=== PATIENT | female | born 1950 | race Caucasian/White ===

== ENCOUNTER → 2018-12-01 15:05 | Outpatient (CLI) | payer MEDICARE, OTHER, SELFPAY ==
--- NOTE | 2018-12-01 | DI.MG.S_ITS ---
BILATERAL DIGITAL SCREENING MAMMOGRAM 3D/2D WITH CAD: 12/01/2018 CLINICAL: Routine screening. Family history of breast cancer. Comparison is made to exams dated: 12/07/2016 mammogram, 12/03/2015 mammogram, and 01/31/2015 mammogram - [facility]. There are scattered fibroglandular elements in both breasts. Current study was also evaluated with a Computer Aided Detection (CAD) system. No significant masses, calcifications, or other findings are seen in either breast. There has been no significant interval change. IMPRESSION: NEGATIVE There is no mammographic evidence of malignancy. A 1 year screening mammogram is recommended. This exam was interpreted at Station ID: [id number]. NOTE: For mammograms, a report in lay terms will be sent to the patient. Approximately 15% of breast malignancies will not be visualized mammographically. In the management of a palpable breast mass, a negative mammogram must not discourage biopsy of a clinically suspicious lesion. Electronically Signed By: Anthony gil/shannan:12/01/2018 16:25:54 letter sent: Normal Exam ACR BI-RADS Category 1: Negative 3341F
== END ==
PROVIDERS: Visit Provider Family Medicine Geriatric Medicine
DX: Z12.31 Encounter for screening mammogram for malignant neoplasm of breast (principal); Z80.3 Family history of malignant neoplasm of breast
CPT/HCPCS: 77063; 77067

== ENCOUNTER → 2020-02-12 13:50 | Outpatient (CLI) | payer MEDICARE, OTHER, SELFPAY ==
[2020-02-12 15:56] LABS: Add Manual Diff / Slide Review NO; Basophils Absolute Auto 200 /uL (0-100); Basophils Percent Auto 3.2 % (0-2); Eosinophils Absolute Auto 300 /uL (0-450); Eosinophils Percent Auto 5.2 % (2-4); Hemoglobin 15.4 g/dL (12.0-16.0); Lymphocytes Absolute Auto 1400 /uL (1100-4500); Lymphocytes Percent Auto 23.4 % (25-40); Mean Corpuscular HGB Conc 35.8 % (30-36); Mean Corpuscular Hemoglobin 33.6 PG (26-34); Mean Corpuscular Volume 93.8 fL (80-100); Monocytes Absolute Auto 400 /uL (0-900); Monocytes Percent Auto 6.9 % (3-14); Neutrophils Absolute Auto 3600 /uL (1500-7000); Neutrophils Percent Auto 61.3 % (50-75); Platelet Count 240 X10^3/uL (150-400); Red Blood Cell Count 4.58 X10^6/uL (4.0-5.2); Red Cell Distribution Width 12.2 % (11.6-14.8); White Blood Cell Count 5.9 X10^3/uL (4.5-11.0)
[2020-02-12 16:03] LABS: Alanine Aminotransferase 17 IU/L (<35); Albumin 4.8 g/dL (3.5-5.0); Albumin Globulin Ratio 1.5 (1.0-2.8); Alkaline Phosphatase 81 U/L (38-126); Aspartate Aminotransferase 28 IU/L (14-36); BUN Creatinine Ratio 25.7 (6-22); Bilirubin Total 0.7 mg/dL (0.2-1.3); Blood Urea Nitrogen 19 mg/dL (7-17); Calcium 10.1 mg/dL (8.4-10.2); Carbon Dioxide 25 mmol/L (22-32); Chloride 101 mmol/L (98-107); Cholesterol 147 mg/dL (140-199); Estimated Glomerular Filt Rate > 60.0 mL/min (>60); Globulin 3.3 g/dL (1.7-4.1); Glucose 91 mg/dL (80-110); HDL Cholesterol 47 mg/dL (40-60); HEMOLYSIS < 15 (0-50); LDL Cholesterol Calculated 71 mg/dL (<100); Potassium 3.5 mmol/L (3.4-5.1); Sodium 138 mmol/L (137-145); Total Protein 8.1 g/dL (6.3-8.2); Triglycerides 143 mg/dL (35-150)
[2020-02-12 16:14] LABS: Vitamin D 25 Hydroxy (D3) 79.2 ng/mL (30.0-100.0)
[2020-02-12 16:31] LABS: TSH w/ Reflex to FT4 3.95 uIU/mL (0.47-4.68)
== END ==
PROVIDERS: PCP Physician Assistant; Referring Provider Physician Assistant; Visit Provider Physician Assistant
DX: M81.0 Age-related osteoporosis without current pathological fracture (principal); E03.9 Hypothyroidism, unspecified; E55.9 Vitamin D deficiency, unspecified; E78.89 Other lipoprotein metabolism disorders; I10 Essential (primary) hypertension
CPT/HCPCS: 36415; 80053; 80061; 82306; 84443; 85025

== ENCOUNTER → 2020-10-04 12:55 | Outpatient (CLI) | payer MEDICARE, OTHER, SELFPAY ==
[2020-10-04] MEDS: COVID-19 VACC #1, MRNA(MOD) 100 MCG/0.5 ML VIAL IM (13:01)
== END ==
PROVIDERS: PCP Physician Assistant; Visit Provider Internal Medicine
DX: Z23 Encounter for immunization (principal)
CPT/HCPCS: 0011A; 91301

== ENCOUNTER → 2020-10-31 15:05 | Outpatient (CLI) | payer MEDICARE, OTHER, SELFPAY ==
[2020-10-31] MEDS: COVID-19 VACC #2, MRNA(MOD) 100 MCG/0.5 ML VIAL IM (15:13)
== END ==
PROVIDERS: PCP Physician Assistant; Visit Provider Internal Medicine
DX: Z23 Encounter for immunization (principal)
CPT/HCPCS: 0012A; 91301

== ENCOUNTER → 2020-12-12 10:42 | Outpatient (CLI) | payer MEDICARE, OTHER, SELFPAY ==
--- NOTE | 2020-12-12 10:48 | DI.MG.S_ITS ---
BILATERAL DIGITAL SCREENING MAMMOGRAM 3D/2D WITH CAD: 12/12/2020 CLINICAL: Routine screening. Family history of breast cancer. Comparison is made to exams dated: 12/01/2018 mammogram, 12/07/2016 mammogram, and 12/03/2015 mammogram - [facility]. There are scattered fibroglandular elements in both breasts. Current study was also evaluated with a Computer Aided Detection (CAD) system. No significant masses, calcifications, or other findings are seen in either breast. There has been no significant interval change. IMPRESSION: NEGATIVE There is no mammographic evidence of malignancy. A 1 year screening mammogram is recommended. This exam was interpreted at Station ID: [id number]. NOTE: For mammograms, a report in lay terms will be sent to the patient. Approximately 15% of breast malignancies will not be visualized mammographically. In the management of a palpable breast mass, a negative mammogram must not discourage biopsy of a clinically suspicious lesion. Electronically Signed By: Rip caraballo/shannan:12/12/2020 11:16:19 letter sent: Normal Exam ACR BI-RADS Category 1: Negative 3341F
[2020-12-12 12:10] LABS: Add Manual Diff / Slide Review NO; Basophils Absolute Auto 200 /uL (0-100); Eosinophils Absolute Auto 400 /uL (0-450); Eosinophils Percent Auto 7.1 % (2-4); Hematocrit 43.2 % (36-46); Hemoglobin 14.6 g/dL (12.0-16.0); Lymphocytes Absolute Auto 1500 /uL (1100-4500); Lymphocytes Percent Auto 25.6 % (25-40); Mean Corpuscular HGB Conc 33.8 % (30-36); Mean Corpuscular Hemoglobin 32.3 PG (26-34); Mean Corpuscular Volume 95.6 fL (80-100); Monocytes Absolute Auto 500 /uL (0-900); Monocytes Percent Auto 8.1 % (3-14); Neutrophils Absolute Auto 3200 /uL (1500-7000); Neutrophils Percent Auto 56.2 % (50-75); Platelet Count 259 X10^3/uL (150-400); Red Blood Cell Count 4.52 X10^6/uL (4.0-5.2); Red Cell Distribution Width 12.3 % (11.6-14.8); White Blood Cell Count 5.8 X10^3/uL (4.5-11.0)
[2020-12-12 12:26] LABS: Alanine Aminotransferase 17 IU/L (<35); Albumin 4.5 g/dL (3.5-5.0); Albumin Globulin Ratio 1.5 (1.0-2.8); Alkaline Phosphatase 92 U/L (38-126); Aspartate Aminotransferase 27 IU/L (14-36); Bilirubin Total 0.5 mg/dL (0.2-1.3); Blood Urea Nitrogen 13 mg/dL (7-17); Calcium 9.9 mg/dL (8.4-10.2); Carbon Dioxide 26 mmol/L (22-32); Chloride 103 mmol/L (98-107); Cholesterol 185 mg/dL (140-199); Estimated Glomerular Filt Rate > 60.0 mL/min (>60); Glucose 98 mg/dL (80-110); HDL Cholesterol 74 mg/dL (40-60); HEMOLYSIS < 15 (0-50); LDL Cholesterol Calculated 87 mg/dL (<100); Sodium 139 mmol/L (137-145); Total Protein 7.5 g/dL (6.3-8.2); Triglycerides 118 mg/dL (35-150)
[2020-12-12 12:43] LABS: Vitamin D 25 Hydroxy (D3) 59.3 ng/mL (30.0-100.0)
[2020-12-12 12:57] LABS: TSH w/ Reflex to FT4 5.34 uIU/mL (0.47-4.68)
[2020-12-12 13:30] LABS: Free T4, Direct Thyroxine 1.14 ng/dL (0.78-2.19)
== END ==
PROVIDERS: PCP Physician Assistant; Referring Provider Physician Assistant; Visit Provider Physician Assistant
DX: Z12.31 Encounter for screening mammogram for malignant neoplasm of breast (principal); Z80.3 Family history of malignant neoplasm of breast
CPT/HCPCS: 36415; 77063; 77067; 80053; 80061; 82306; 84439; 84443; 85025

== ENCOUNTER → 2021-02-13 14:27 | Outpatient (CLI) | payer MEDICARE, OTHER, SELFPAY ==
[2021-02-13 16:01] LABS: TSH w/ Reflex to FT4 1.91 uIU/mL (0.47-4.68)
== END ==
PROVIDERS: PCP Physician Assistant; Referring Provider Physician Assistant; Visit Provider Physician Assistant
DX: E03.9 Hypothyroidism, unspecified (principal)
CPT/HCPCS: 36415; 84443

== ENCOUNTER → 2021-04-09 09:46 | Outpatient (CLI) | payer MEDICARE, OTHER, SELFPAY ==
[2021-04-09 10:45] LABS: COVID19 -Nasal RAPID Negative (Negative)
== END ==
PROVIDERS: PCP Physician Assistant; Visit Provider Surgery
DX: Z01.812 Encounter for preprocedural laboratory examination (principal); Z20.822 Contact with and (suspected) exposure to COVID-19
CPT/HCPCS: 87635; C9803

== ENCOUNTER → 2021-04-10 07:31 | Day surgery (SDC) | payer MEDICARE, OTHER, SELFPAY ==
--- NOTE | 2021-04-10 | PATH_ITS ---
[facility] Accession Number: [id number] . 01 Material submitted: . cecum - CECUM POLYP . 02 Diagnosis: Cecum, Polyp: Portions of tubular adenoma x 2. Superficial portion of colorectal mucosa x 1 with no significant histomorphologic abnormality. MRV 04/14/2021 1344 Local . 02 Electronically signed: . Tamera Lovell MD, Pathologist NPI- [id number] . 01 Gross description: . CECUM POLYP: Received in formalin are 3 fragment(s) of navarro, soft tissue measuring 0.4 x 0.3 x 0.2 cm to 0.3 x 0.1 x 0.1 cm submitted entirely in 1 cassette(s) /NOÉ 04/11/2021 0347 Local . 02 Pathologist provided ICD-10: K63.5, Z12.11 . 02 CPT . 413464 Performed at: 01 [facility] [address], [place], [place] [id number] MD Kee Meeks MD Phone: [phone] Performed at: [address] [facility] [address] [place], [place] [id number] MD Belkys Brink MD Phone: [phone]
[2021-04-10 08:01] VITALS: BP 147/91; PULSE 89; RESP 16; TEMP 36.8; O2SAT 97; BMI 23.3
[2021-04-10] MEDS: LACTATED RINGERS 1,000 ML 100 ML IV (08:07)
[2021-04-10] MEDS: MIDAZOLAM 5 MG/5 ML VIAL IV (08:38)
[2021-04-10] MEDS: fentaNYL 250 MCG/5 ML INJ IV (08:46)
--- NOTE | 2021-04-10 08:55 | PM.OP.ENDO ---
Operative Date/Time/Diagnoses Date of procedure: 04/10/21 Time of procedure: 08:55 Pre-op diagnosis: Family history for colon polyps and colon cancer Post-op diagnosis: same Procedure & Clinicians Study performed: colonoscopy with cold forcep polypectomy. Same procedure as scheduled: Yes Indications: family history for colon polyps and colon cancer. Surgeon: Mercy Larose Procedure Notes SCOAP/Timeout: done Procedure in detail: Preop diagnosis: Family history for colon cancer and a father age 80 and colon polyps in brother Postop diagnosis: Same Operative procedure: Colonoscopy with cold forceps polypectomy Anesthetic: Moderate sedation with 150 micro g of fentanyl 5 mg Versed Surgeon: Teetee Larose MD Findings: Excellent bowel prep. 3 mm sessile polyp in the cecum, no diverticulosis. Procedure: Patient placed in a lateral position. Rectal exam is performed showing normal tone no masses. Colonoscope was inserted into the rectum and advanced to the ileocecal valve with minimal difficulty. Insufflation and extraction of the scope including a retroflexed in the rectum had the above findings. Impression: Single small polyp in the cecum taken with cold forceps Plan repeat colonoscopy in 5 years due to family history and possibility of adenomatous polyps on this exam. Scope withdrawal time: 9 Sedation minutes: 22 Findings: polyp (cecal, 3mm, sessile) Specimen(s): other (cecal polyp) Complications: none Impression: single small polyp, no diverticula Post-procedure Recommendations: Colonscopy in 5 years Plan for aftercare: home Follow up: as needed Disposition: PACU
[2021-04-10 08:57] VITALS: BP 115/77; BP 136/82; PULSE 69; PULSE 74; RESP 14; TEMP 36.6; O2SAT 95; O2SAT 98
[2021-04-10 09:02] VITALS: BP 115/77; PULSE 67; RESP 14; O2SAT 98
[2021-04-10 09:30] VITALS: BP 113/79; PULSE 71; RESP 16; TEMP 36.7; O2SAT 97
--- NOTE | 2021-05-16 17:15 | PM.HP.1 ---
History of Present Illness History of Present Illness Date Patient Seen: 04/10/21 Chief complaint: SCREENING COLONOSCOPY Narrative: Colon cancer screening Patient History Medical History Cataracts, bilateral Chicken pox Hemorrhoid History of Hypertension (~2006) Hypothyroidism Lichen sclerosus of vulva Measles Mumps (~1955) Osteoporosis (~2017) Ovarian cyst (~1971) Surgical History (Updated 03/18/19 @ 21:22 by Gely Casey) Anesthesia History of colonoscopy (~2005) History of oophorectomy (~1971) History of tonsillectomy (~1955) Family & Social History Family History (Updated 04/10/21 @ 07:54 by Renato White RN) Father Colon cancer Mother COPD (chronic obstructive pulmonary disease) Brother History of colon resection Polyp of colon, adenomatous Social History: household members spouse Tobacco & Substance use: Smoking Status Never smoker alcohol intake current alcohol intake frequency a few times a week Substance Use Type does not use Meds Home Medications and Allergies Home Medications Medication Instructions Recorded Confirmed Type hydrochlorothiazide 25 mg tablet 25 mg PO DAILY 01/24/19 04/10/21 History levothyroxine 75 mcg tablet 50 mcg PO QAM #0 tab 01/24/19 04/10/21 History (Synthroid) aspirin 81 mg tablet 81 mg PO BEDTIME 04/10/21 04/10/21 History ibuprofen 200 mg tablet (Advil) 200 mg PO DAILY PRN 04/10/21 04/10/21 History Allergies Allergy/AdvReac Type Severity Reaction Status Date / Time fentanyl AdvReac violently Verified 05/03/21 15:21 ill with severe repeated vomiting Review of Systems Review of Systems Narrative: no current GI symptoms or BRBPR ROS: Yes All systems reviewed with the patient and are negative except as otherwise documented Exam Vital Signs (past 8 hours): Oxygen Delivery Method Room Air Oxygen Flow Rate 0 Const General: cooperative and well developed Nutritional Appearance: average body habitus HENMT Head: normal to inspection Ears: hearing grossly normal bilaterally Eyes Alignment and Position: alignment normal Sclera: sclerae normal Neck Neck: trachea midline Resp Effort & Inspection: normal respiratory effort and able to speak in complete sentences Auscultation: clear to auscultation bilaterally Cardio Rate: regular rate Rhythm: regular rhythm GI Palpation: soft Neuro General: patient alert, patient oriented x3 and no focal motor deficits Psych Judgment: judgment good Assessment & Plan Assessment & Plan narrative: colon cancer screening with colonoscopy using moderate sedation COVID-19 COVID-19 status: Negative Time Spent With Patient Time with patient: less than 30 minutes Critical Care time: I spent a total of [] minutes of critical care time on this patient's care today; this time is exclusive of procedural time.
== END | disposition home or self-care (01) ==
PROVIDERS: PCP Physician Assistant; Referring Provider Surgery; Visit Provider Surgery
PROC: 0DJD8ZZ Inspection of Lower Intestinal Tract, Via Natural or Artificial Opening Endoscopic (ICD-10-PCS; CPT 45378; principal; 2021-04-10 08:30)
DX: Z12.11 Encounter for screening for malignant neoplasm of colon (principal); D12.0 Benign neoplasm of cecum; Z80.0 Family history of malignant neoplasm of digestive organs; Z83.71 Family history of colonic polyps; I10 Essential (primary) hypertension; E03.9 Hypothyroidism, unspecified; M81.0 Age-related osteoporosis without current pathological fracture
CPT/HCPCS: 45380; J2250; J3010

== ENCOUNTER → 2021-07-18 11:49 | Outpatient (CLI) | payer MEDICARE, OTHER, SELFPAY ==
[2021-07-18] MEDS: COVID-19 VACC #3, MRNA(MOD) 50 MCG/0.25 ML VIAL IM (12:02)
== END ==
PROVIDERS: PCP Physician Assistant; Visit Provider Internal Medicine
DX: Z23 Encounter for immunization (principal)
CPT/HCPCS: 0013A; 91301

== ENCOUNTER → 2021-12-18 14:08 | Outpatient (CLI) | payer OTHER, SELFPAY ==
--- NOTE | 2021-12-18 | DI.MG.S_ITS ---
BILATERAL DIGITAL SCREENING MAMMOGRAM 3D/2D WITH CAD: 12/18/2021 CLINICAL: Routine screening. Family history of breast cancer. Comparison is made to exams dated: 12/12/2020 mammogram, 12/01/2018 mammogram, and 12/07/2016 mammogram - [facility]. There are scattered fibroglandular elements in both breasts. Current study was also evaluated with a Computer Aided Detection (CAD) system. No significant masses, calcifications, or other findings are seen in either breast. There has been no significant interval change. IMPRESSION: NEGATIVE There is no mammographic evidence of malignancy. A 1 year screening mammogram is recommended. This exam was interpreted at Station ID: [id number]. NOTE: For mammograms, a report in lay terms will be sent to the patient. Approximately 15% of breast malignancies will not be visualized mammographically. In the management of a palpable breast mass, a negative mammogram must not discourage biopsy of a clinically suspicious lesion. Electronically Signed By: Jason Mckeon M.D., jr/shannan:12/18/2021 15:45:55 letter sent: Normal Exam ACR BI-RADS Category 1: Negative 3341F
== END ==
PROVIDERS: PCP Physician Assistant; Referring Provider Physician Assistant; Visit Provider Physician Assistant
DX: Z12.31 Encounter for screening mammogram for malignant neoplasm of breast (principal); Z80.3 Family history of malignant neoplasm of breast
CPT/HCPCS: 77063; 77067

== ENCOUNTER → 2022-01-28 14:07 | Outpatient (CLI) | payer OTHER, SELFPAY ==
--- NOTE | 2022-01-28 | DI.RAD.S_ITS ---
PROCEDURE: XR CHEST 2V INDICATIONS: COUGH TECHNIQUE: 2 views of the chest were acquired. COMPARISON: None. FINDINGS: Surgical changes and devices: None. Lungs and pleura: Mild bronchial wall thickening is seen. No focal infiltrate. No pleural effusions or pneumothorax. Mediastinum: Mediastinal contours are normal. Heart size is normal. Bones and chest wall: No suspicious bony abnormalities. Soft tissues appear unremarkable. IMPRESSION: Mild reactive airway disease. No focal infiltrate, pleural effusion or pneumothorax. Dictated by: Armen Arredondo M.D. on 01/28/2022 at 15:39 Approved by: Armen Arredondo M.D. on 01/28/2022 at 15:39
== END ==
PROVIDERS: PCP Physician Assistant; Referring Provider Physician Assistant; Visit Provider Physician Assistant
DX: J45.909 Unspecified asthma, uncomplicated (principal); R05.9 Cough, unspecified
CPT/HCPCS: 71046

== ENCOUNTER → 2022-02-19 12:55 | Outpatient (CLI) | payer OTHER, SELFPAY ==
[2022-02-19 13:59] LABS: COVID19 -Nasal RAPID Negative (Negative)
== END ==
PROVIDERS: PCP Physician Assistant; Referring Provider Internal Medicine; Visit Provider Internal Medicine
DX: Z20.822 Contact with and (suspected) exposure to COVID-19 (principal)
CPT/HCPCS: 87635

== ENCOUNTER → 2022-02-19 12:56 | Outpatient (CLI) | payer OTHER, SELFPAY ==
--- NOTE | 2022-02-25 08:27 | PM.PFT.1 ---
Pulmonary Function Test Referral & Results Date Patient Seen: 02/19/22 Requesting provider: Sara Andrade Results: The spirometry demonstrates an FVC of 2.77 L which is 86% of predicted. The FEV1 was measured at 2.44 L which is 100% of predicted. The FEV1/FVC ratio was 88 which is 115% of predicted. Following the administration of bronchodilator there was no notable change. Lung volumes show an SVC of 2.82 L which is 92% of predicted. The diffusing capacity was measured at 20.96 which is 77% of predicted. No hemoglobin value was provided, so no correction for potential anemia could be made, if appropriate. The maximum voluntary ventilation was normal Interpretation: This study demonstrates probably normal pulmonary function There may be a very minimal reduction diffusing capacity suggesting the possibility of minimal disease at the capillary alveolar level Clinical correlation suggested
== END ==
PROVIDERS: PCP Physician Assistant; Referring Provider Physician Assistant; Visit Provider Physician Assistant
DX: R05.8 Other specified cough (principal); J98.8 Other specified respiratory disorders; Z20.822 Contact with and (suspected) exposure to COVID-19
CPT/HCPCS: 87635; 94060; 94726; 94729

== ENCOUNTER → 2022-02-20 12:34 | Outpatient (CLI) | payer OTHER, SELFPAY | PROVIDERS: PCP Physician Assistant; Referring Provider Physician Assistant; Visit Provider Physician Assistant | DX: E21.3 Hyperparathyroidism, unspecified (principal); M81.0 Age-related osteoporosis without current pathological fracture; Z78.0 Asymptomatic menopausal state | CPT/HCPCS: 77080 ==

== ENCOUNTER → 2022-12-21 08:43 | Outpatient (CLI) | payer OTHER, SELFPAY ==
--- NOTE | 2022-12-21 | DI.MG.S_ITS ---
BILATERAL DIGITAL SCREENING MAMMOGRAM 3D/2D WITH CAD: 12/21/2022 CLINICAL: Routine screening. Family history of breast cancer. Comparison is made to exams dated: 12/18/2021 mammogram, 12/12/2020 mammogram, and 12/01/2018 mammogram - [facility]. There are scattered areas of fibroglandular density in both breasts (category b / 25%-50% glandular tissue). Current study was also evaluated with a Computer Aided Detection (CAD) system. No significant masses, calcifications, or other findings are seen in either breast. There has been no significant interval change. IMPRESSION: NEGATIVE There is no mammographic evidence of malignancy. A 1 year screening mammogram is recommended. Based on the Tyrer Cuzick model (a risk assessment model) the patient's lifetime risk is 5.0% and her 10 year risk is 3.4%. According to the ACR, ACS, and NCCN guidelines, an annual breast MRI exam along with mammogram is recommended if the patient's lifetime risk is 20% or greater. This exam was interpreted at Station ID: [id number]. NOTE: For mammograms, a report in lay terms will be sent to the patient. Approximately 15% of breast malignancies will not be visualized mammographically. In the management of a palpable breast mass, a negative mammogram must not discourage biopsy of a clinically suspicious lesion. Electronically Signed By: Christopher monique/shannan:12/21/2022 12:42:59 letter sent: Normal Exam ACR BI-RADS Category 1: Negative 3341F
== END ==
PROVIDERS: PCP Physician Assistant; Referring Provider Physician Assistant; Visit Provider Physician Assistant
DX: Z12.31 Encounter for screening mammogram for malignant neoplasm of breast (principal); Z80.3 Family history of malignant neoplasm of breast
CPT/HCPCS: 77063; 77067

== ENCOUNTER → 2023-12-24 15:02 | Outpatient (CLI) | payer MEDICARE, SELFPAY ==
--- NOTE | 2023-12-24 15:04 | DI.MG.S_ITS ---
BILATERAL DIGITAL SCREENING MAMMOGRAM 3D/2D WITH CAD: 12/24/2023 CLINICAL: Routine screening. Family history of breast cancer. Comparison is made to exams dated: 12/21/2022 mammogram, 12/18/2021 mammogram, and 12/12/2020 mammogram - [facility]. There are scattered areas of fibroglandular density in both breasts (category b / 25%-50% glandular tissue). Current study was also evaluated with a Computer Aided Detection (CAD) system. No significant masses, calcifications, or other findings are seen in either breast. There has been no significant interval change. IMPRESSION: NEGATIVE There is no mammographic evidence of malignancy. A 1 year screening mammogram is recommended. Based on the Tyrer Cuzick model (a risk assessment model) the patient's lifetime risk is 4.7% and her 10 year risk is 3.5%. According to the ACR, ACS, and NCCN guidelines, an annual breast MRI exam along with mammogram is recommended if the patient's lifetime risk is 20% or greater. This exam was interpreted at Station ID: [id number]. NOTE: For mammograms, a report in lay terms will be sent to the patient. Approximately 15% of breast malignancies will not be visualized mammographically. In the management of a palpable breast mass, a negative mammogram must not discourage biopsy of a clinically suspicious lesion. Electronically Signed By: Cindi flores/shannan:12/24/2023 17:15:20 letter sent: Normal Exam ACR BI-RADS Category 1: Negative 3341F
== END ==
PROVIDERS: PCP Physician Assistant; Referring Provider Physician Assistant; Visit Provider Physician Assistant
DX: Z12.31 Encounter for screening mammogram for malignant neoplasm of breast (principal); Z80.3 Family history of malignant neoplasm of breast; R92.323 Mammographic fibroglandular density, bilateral breasts
CPT/HCPCS: 77063; 77067

== ENCOUNTER → 2024-12-25 14:24 | Outpatient (CLI) | payer OTHER, SELFPAY ==
--- NOTE | 2024-12-25 14:27 | DI.MG.S_ITS ---
MM screening mammo BI: 12/25/2024. BI-RADS: 1 CLINICAL: 74-year old female for bilateral screening mammogram. Tyrer-Cuzick lifetime risk of 6.9%. No personal or first-degree family history of breast cancer. Current reported family history of breast cancer: paternal aunt and second paternal aunt. PRIOR EXAMS 12/24/2023, 12/21/2022, 12/18/2021, 12/12/2020, 12/01/2018, 12/07/2016, 12/03/2015, 01/31/2015. MAMMOGRAPHY TECHNIQUE: 2D and 3D (tomosynthesis) digital mammographic views obtained, with additional images as needed for full coverage. Current study was also evaluated with a Computer Aided Detection (CAD) system. DENSITY B. There are scattered areas of fibroglandular density. MAMMOGRAPHY FINDINGS Bilateral: No suspicious mass, asymmetry, microcalcification, or other abnormality seen. IMPRESSION: * No evidence of malignancy. RECOMMENDATIONS Bilateral * Annual screening mammography. OVERALL ASSESSMENT CATEGORY BI-RADS-1: Negative. The [employer] recommends annual screening mammography beginning at age 40 for women with average risk of breast cancer. ELECTRONICALLY SIGNED: Anthony Ramirez M.D. on 12/25/2024 at 05:55:21 PM PT Interpreting Station ID: [id number]
== END ==
PROVIDERS: PCP Physician Assistant; Referring Provider Physician Assistant; Visit Provider Physician Assistant
DX: Z12.31 Encounter for screening mammogram for malignant neoplasm of breast (principal); Z80.3 Family history of malignant neoplasm of breast
CPT/HCPCS: 77063; 77067

== ENCOUNTER → 2025-01-26 11:12 | Outpatient (CLI) | payer OTHER, SELFPAY ==
--- NOTE | 2025-01-26 11:13 | DI.RAD.S_ITS ---
PROCEDURE: XR DEXA AXIAL SKELETON INDICATIONS: osteopenia screening COMPARISON: [facility], , XR DEXA AXIAL SKELETON, 02/20/2022, 12:54. [facility], CR, XR DEXA AXIAL SKELETON, 01/04/2018, 15:07. FINDINGS: Lumbar Spine: Bone mineral density 0.777 g/cm2, T score -2.5, no significant change. Left Femoral Neck: Bone mineral density 0.758 g/cm2, T score -0.8. Left Hip: Bone mineral density 0.735 g/cm2, T score -1.7, no significant change. Fracture Risk Calculation (when applicable): 10-year fracture risk of a major osteoporotic fracture 9.2 percent and of a hip fracture 1.1 percent. (T score greater or equal to -1.0 to: NORMAL) (T score from -1.1 to -2.4: OSTEOPENIA) (T score less than or equal to -2.5: OSTEOPOROSIS) IMPRESSION: Osteoporosis by WHO classification. Follow-up guidelines as follows: Osteoporosis: Consider a repeat DEXA and Vertebral Fracture Assessment (VFA) exam in 2 years or sooner if medically necessary, to reassess this patient's status. Osteopenia: Consider a repeat DEXA in 2-3 years to reassess this patient's status, or if there is a new clinical indication. Normal: Consider a repeat DEXA in 5 years or sooner, or if there is a new clinical indication. All treatment decisions require clinical judgment and consideration of individual patient factors, including patient preferences, comorbidities, previous drug use, risk factors not captured in the FRAX model (e.g., frailty, falls, vitamin D deficiency, increased bone turnover, interval significant decline in bone density ) and possible under- or over-estimation of fracture risk by FRAX. In addition, the NOF Guide recommends that FDA-approved medical therapies be considered in postmenopausal women and men age >= 50 years with a: * Hip or vertebral (clinical or morphometric) fracture * T-score of <=-2.5 at the spine or hip * Ten-year fracture probability by FRAX of >= 3% for hip fracture or >=20% for major osteoporotic fracture. Dictated by: Sascha Rosas M.D. on 01/26/2025 at 16:06 Approved by: Sascha Rosas M.D. on 01/26/2025 at 16:07
== END ==
PROVIDERS: PCP Physician Assistant; Referring Provider Physician Assistant; Visit Provider Physician Assistant
DX: M81.0 Age-related osteoporosis without current pathological fracture (principal); Z78.0 Asymptomatic menopausal state
CPT/HCPCS: 77080